=== PATIENT | female | born 1990 | race African-American/Black ===

== ENCOUNTER 2018-02-17 14:38 | Emergency (ER) | payer OTHER ==
--- NOTE | 2018-02-17 14:45 | PDOC ---
History of Present Illness - History of Present Illness Initial Comments: 02/17/18 15:20 Patient is a 27 year old female with no significant past medical history who presents to the ED with complaints of diffuse abdominal pain that began yesterday afternoon. Patient reports gradual abdominal pain began yesterday afternoon that she states is a pressured pain and is currently rated as 10/10 in intensity. She reports getting a liposuction surgery conducted last week on february 10 in [place], before returning to [place]. Patient reports having not moved her bowels since before completing the surgery. She reports taking percocet for the pain with slight relief, as well as being prescribed keflex x4 times a week, but state she misses up to 1 dose per day due to being asleep after taking the percocet.Patient reports having her incisions drained before, stating she had to have them re opened in order to fully drain the incision sites. Denies chest pain, Sob. Denies nausea, vomiting. Denies contact with sick individuals, out of state travelling. Denies trauma to affected area. Denies any other symptoms. Allergies: None Social history: No smoking. No alcohol. No illicit drugs. Surgical history: Liposuction PMD: Not on staff. <Venu Ford - Last Filed: 02/17/18 15:20> - General History Source: Patient Exam Limitations: No Limitations <Yue Bedoya - Last Filed: 02/17/18 17:08> - General Chief Complaint: Pain Stated Complaint: ABDOMINAL PAIN S/P LIPOSUCTION Time Seen by Provider: 02/17/18 14:43 Past History <Venu Ford - Last Filed: 02/17/18 15:20> - Suicide/Smoking/Psychosocial Hx Smoking History: Never smoked Substance Use Type: None <Yue Bedoya - Last Filed: 02/17/18 17:08> - Past Medical History Allergies/Adverse Reactions: Allergies Allergy/AdvReac Type Severity Reaction Status Date / Time loratadine [From Claritin] Allergy Verified 02/17/18 14:39 Home Medications: Ambulatory Orders Cephalexin [Keflex] 500 mg PO QID 02/17/18 Ondansetron HCl [Zofran] 4 mg PO PRN 02/17/18 Oxycodone HCl/Acetaminophen [Endocet 5-325 Tablet] 1 tab PO PRN 02/17/18 Polyethylene Glycol 3350 [Miralax (For Bowel Prep) -] 17 gm PO DAILY #1 bottle 02/17/18 Review of Systems - Review of Systems Able to Perform ROS?: Yes Comments:: 02/17/18 15:20 GENERAL/CONSTITUTIONAL: No: fever, chills, weakness, loss of appetite. HEAD, EYES, EARS, NOSE AND THROAT: No: change in vision, ear pain, discharge, sore throat, throat swelling. CARDIOVASCULAR: No: chest pain, lightheadedness, palpitations, syncope RESPIRATORY: No: cough, shortness of breath, wheezing, hemoptysis, stridor. GASTROINTESTINAL: +Constipation No: nausea, vomiting, abdominal cramping, diarrhea, rectal bleeding, GENITOURINARY: No: dysuria, hematuria, frequency, urgency, flank pain. MUSCULOSKELETAL: +Diffuse abdominal pain. No: back pain, neck pain, joint pain, muscle swelling SKIN: No: lesions, pallor, rash or easy bruising. NEUROLOGIC: No: headache, vertigo, paresthesias, weakness ENDOCRINE: No: unexplained weight gain or loss HEMATOLOGIC/LYMPHATIC: No: anemia, easy bleeding, swelling nodes <Venu Ford - Last Filed: 02/17/18 15:20> *Physical Exam - Vital Signs Last Vital Signs Temp Pulse Resp BP Pulse Ox 99.5 F 97 H 20 114/65 100 02/17/18 14:39 02/17/18 14:39 02/17/18 14:39 02/17/18 14:39 02/17/18 14:39 - Physical Exam Comments: 02/17/18 15:21 GENERAL: The patient is in no acute distress. HEAD: Normal with no signs of trauma. EYES: PERRLA, EOMI, sclera anicteric, conjunctiva clear. ENT: Ears normal, nares patent, oropharynx clear without exudates. Moist mucous membranes. NECK: Normal range of motion, supple without lymphadenopathy, JVD, or masses. LUNGS: Breath sounds equal, clear to auscultation bilaterally. No wheezes, and no crackles. HEART:Regular rate and rhythm, normal S1 and S2 without murmur, rub or gallop. ABDOMEN: +x3 superpubic incisions located in right, middle and left site. +Dry puss in right incision site. Soft, nontender, normoactive bowel sounds. No guarding, no rebound. EXTREMITIES: Normal range of motion, no edema. No clubbing or cyanosis. No erythema, or tenderness. NEUROLOGICAL: Cranial nerves II through XII grossly intact. Normal speech. No focal neurological deficits. MUSCULOSKELETAL: Back nontender to palpation, no CVA tenderness SKIN: Warm, Dry, normal turgor, no rashes or lesions noted. <Venu Ford - Last Filed: 02/17/18 15:20> Medical Decision Making - Medical Decision Making 02/17/18 16:46 27 yo F presenting to the ER with abdominal pain Pt is s/p Liposuction approximately 1 week ago No fevers or chills Has not had a bowel movement since before the surgery No chest pain No shortness of breath No dysuria Pt has pain through out the abdomen On examin No erythema, no drainage No signs of cellulitis No purulence Abd is soft, no involuntary guarding or rebound Xray demonstrates fecal impaction US demonstrates scant fluid in the abdominal wall No signs of a collection No seroma Will ask pt to continue her pain medications Will ask pt to take her temp and monitor for fevers Will ask pt to follow up with plastic surgeon Clinical IMpression: abdominal pain s/p liposuction, initial presentation <Yue Bedoya - Last Filed: 02/17/18 17:08> *DC/Admit/Observation/Transfer - Attestations Scribe Attestion: 02/17/18 15:21 Documentation prepared by Venu Ford, acting as senior medical transcriptionist for Yue Bedoya MD. <Venu Ford - Last Filed: 02/17/18 15:20> - Discharge Dispostion Decision to Admit order: No <Yue Bedoya - Last Filed: 02/17/18 17:08> Diagnosis at time of Disposition: Abdominal wall pain Constipation Qualifiers: Constipation type: other constipation type Qualified Code(s): K59.09 - Other constipation - Discharge Dispostion Disposition: HOME Condition at time of disposition: Stable - Prescriptions Prescriptions: Polyethylene Glycol 3350 [Miralax (For Bowel Prep) -] 17 gm PO DAILY #1 bottle - Referrals Referrals: Obey Lopez MD [Staff Physician] - Helder Pagan MD [Staff Physician] - Urbano Byrne MD [Staff Physician] - - Patient Instructions Printed Discharge Instructions: [facility] on Liposuction, Liposuction, DI for Liposuction Additional Instructions: Ms Whitehead Thank you for coming in to the ER today Please be sure to follow up with the Plastic Surgeon as soon as possible Please monitor for fevers and chills Please monitor for redness around your incision sites Please continue to take pain medications you were prescribed You MUST start a bowel regimen You MUST have a bowel movement (you are constipated) Please return to the ER IMMEDIATELY for increased pain, fevers, chills, abdominal distention Please return to the ER on Thursday at [facility] for re evaluation
[2018-02-17 14:56] VITALS: BP 114/65; PULSE 97; TEMP 99.5; BMI 30.9
[2018-02-17] MEDS ORDERED: SODIUM CHLORIDE 1,000 ML IV STA (15:04)
[2018-02-17] MEDS ORDERED: morphine CARPU-JECT 4 MG/1 ML DISP.SYRIN IVPUSH ONE (15:04)
== END 2018-02-17 17:23 | disposition home or self-care (01) ==
LOC: FER 14:38
DX: K59.09 Other constipation (principal); R10.9 Unspecified abdominal pain
CPT/HCPCS: 74019-TC-FY; 76705; 99282-25

== ENCOUNTER 2019-01-07 22:59 | Observation (INO) | payer OTHER ==
[2019-01-07 23:03] VITALS: BMI 29.2
[2019-01-08] MEDS ORDERED: DEXAMETHASONE LIQUID 0.5 MG/5 ML 240 ML BULK BOTTLE PO ONE (01:22)
[2019-01-08] MEDS ORDERED: SODIUM CHLORIDE 0.9% 500 ML INFUS.BAG IV ONE (01:29)
[2019-01-08 02:01] LABS: BASO % 0.4 % (0-2.0); EOS % 0.8 % (0-4.5); HEMATOCRIT 36.4 % (32.4-45.2); HEMOGLOBIN 11.7 GM/dL (10.7-15.3); LYMPH % 32.6 % (8-40); MCH 26.4 pg (25.7-33.7); MCHC 32.2 g/dl (32.0-36.0); MEAN CELL VOLUME 82.1 fl (80-96); MEAN PLT VOLUME 8.8 fl (7.5-11.1); MONO % 4.6 % (3.8-10.2); NEUT % 61.6 % (42.8-82.8); PLATELET COUNT 201 K/MM3 (134-434); RBC 4.44 M/mm3 (3.60-5.2); RDW 14.6 % (11.6-15.6); WHITE BLOOD COUNT 4.8 K/mm3 (4.0-10.0)
[2019-01-08] MEDS ORDERED: DEXAMETHASONE SOD PHOSPHATE 10 MG/1 ML VIAL ONE (02:02)
[2019-01-08 02:22] LABS: ALBUMIN 3.5 g/dl (3.4-5.0); BILIRUBIN,TOTAL 0.6 mg/dL (0.2-1); CALCIUM 8.3 mg/dL (8.5-10.1); CREATININE 0.8 mg/dL (0.55-1.3); POTASSIUM 3.6 mmol/L (3.5-5.1); TOT PROT 7.5 g/dl (6.4-8.2)
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
--- NOTE | 2019-01-08 06:26 | PN ---
Teaching Attending Note Name of Resident: Namita Hanson ATTENDING PHYSICIAN STATEMENT I saw and evaluated the patient. I reviewed the resident's note and discussed the case with the resident. I agree with the resident's findings and plan as documented. SUBJECTIVE: Seen and examined; please refer to resident note for further historical information. Briefly, this is a 28 y/o female presenting to the ER with a CC of hives; she gets these several times a year. Has had for 3 days associated with sensation of throat swelling and tongue swelling (neither present now). She is protecting her airway without any issues maintaining her sats. Only complaint now is itchiness. It hasn't ever lasted this long. Has seen glass glazier before; she is on hydroxyzine at home and has been on steroids in the past but none dosed recently. 10 sys ROS done and negative aside from HPI PMH, PSH, FH, SH reviewed Home Medications Medication Instructions Recorded Cephalexin [Keflex] 500 mg PO QID 02/17/18 Ondansetron HCl [Zofran] 4 mg PO PRN 02/17/18 Oxycodone HCl/Acetaminophen 1 tab PO PRN 02/17/18 [Endocet 5-325 Tablet] Polyethylene Glycol 3350 [Miralax 17 gm PO DAILY #1 bottle 02/17/18 (For Bowel Prep) -] OBJECTIVE: VS, labs, imaging reviewed NAD, AAO, resting comfortably in bed RRR s1/2 no mgr NC AT EOMI PERRLA Lungs CTAB, w/ sym exp Normal tongue/lips. Protecting airway, no issues swallowing CN2-12 wnl, no fnd ASSESSMENT AND PLAN: Patient presents with recurring hives; had throat/tongue swelling that has resolved. 1) Allergic Reaction -Placing on BID benadryl, famotidine, short burst of Prednisone 40mg -ER sent out C1 labs; can likely followup as OP -Consider nonurgent A and I consultation. 2) Overweight (BMI 29) -Head Of [employer] prior to DC Full Code
[2019-01-08 06:54] VITALS: PULSE 72; TEMP 98.3
--- NOTE | 2019-01-08 07:40 | DS ---
Physical Examination Vital Signs: Vital Signs Temperature 36.8 C 01/08/19 06:45 Pulse Rate 72 01/08/19 06:45 Respiratory Rate 16 01/08/19 06:45 Blood Pressure 95/48 L 01/08/19 06:45 O2 Sat by Pulse Oximetry (%) 100 01/08/19 06:45 Constitutional: Yes: Well Nourished, No Distress, Calm Cardiovascular: Yes: Regular Rate and Rhythm. No: Gallop, Murmur, Rub Respiratory: Yes: Regular, CTA Bilaterally. No: Rales, Rhonchi, Wheezes Gastrointestinal: Yes: Normal Bowel Sounds, Soft. No: Distention, Tenderness Extremities: Yes: WNL Edema: No Labs: CBC, BMP 01/08/19 01:39 01/08/19 01:39 Discharge Summary Reason For Visit: HEREDITARY ANGIONEUROTIC EDEMA/URTICARIA/ITCHING Hospital Course: Ms Whitehead is a very pleasant 28 year old female who comes in with allergic reaction. This began 3 days ago and she had some experience of throat swelling at first, but that has resolved and she is protecting her airway now. She presented with severe hives. She received steroids and benadryl and upon seeing her the hives resolved. FFP was ordered for her, and while this is treatment for an acute exacerbation of hereditary angioedema this was cancelled as she was protecting her airway, she does not give a history of HAE, it has been present for 3 days, and it resolved with steroids and benadryl. She will be discharged home on a prednisone taper and benadryl. She is safe for discharge home. Condition: Good - Instructions Diet, Activity, Other Instructions: resume previous diet and activity Referrals: Marcellus Bernard MD [Primary Care Provider] - Disposition: HOME - Home Medications Comprehensive Discharge Medication List: Ambulatory Orders Diphenhydramine HCl [Benadryl Capsule -] 50 mg PO BID #20 capsule 01/08/19 Hydroxyzine HCl 25 mg PO DAILY 01/08/19 predniSONE [Deltasone -] 5 mg PO ASDIR #32 tab 01/08/19
[2019-01-08 08:34] VITALS: BP 100/58
[2019-01-08] MEDS ORDERED: ENOXAPARIN NA (PORCINE) 40 MG/0.4 ML DISP.SYRIN SQ SCH (10:00)
[2019-01-08] MEDS ORDERED: FAMOTIDINE 20 MG/50 ML IVPB 20 MG/50 ML MG IVPB SCH (10:00)
[2019-01-08] MEDS ORDERED: predniSONE 20 MG TABLET (UD) PO SCH (10:00)
[2019-01-08] MEDS ORDERED: diphenhydrAMINE HCL 25 MG CAPSULE (FP) PO SCH (10:00)
--- NOTE | 2019-01-08 10:57 | EKG ---
Test Reason : Blood Pressure : / mmHG Vent. Rate : 093 BPM Atrial Rate : 093 BPM P-R Int : 170 ms QRS Dur : 084 ms QT Int : 348 ms P-R-T Axes : 062 056 022 degrees QTc Int : 432 ms NORMAL SINUS RHYTHM NONSPECIFIC T WAVE ABNORMALITY ABNORMAL ECG NO PREVIOUS ECGS AVAILABLE Confirmed by SHERWIN TUCKER MD ([id number]) on 01/08/2019 10:57:17 AM Referred By: Confirmed By:SHERWIN TUCKER MD
== END 2019-01-08 08:35 | disposition home or self-care (01) ==
LOC: JER 22:59 → JERBED 01-08 05:34 → INTOOBSV 01-08 05:34
PROVIDERS: ADMIT Internal Medicine; ATTEND Internal Medicine
PROC: 3E0337Z Introduction of Electrolytic and Water Balance Substance into Peripheral Vein, Percutaneous Approach (ICD-10-PCS; principal; 2019-01-08)
DX: L50.9 Urticaria, unspecified (principal); L29.9 Pruritus, unspecified; D84.1 Defects in the complement system; E66.3 Overweight; Z68.29 Body mass index [BMI] 29.0-29.9, adult
CPT/HCPCS: 36415; 71045-TC-FY; 80053; 84703; 85025; 86161; 86850; 86900; 86901; 93005; 93010; 99283-25; G0378

== ENCOUNTER 2021-11-25 04:37 | Inpatient (IN) | payer OTHER ==
[2021-11-21 12:32] VITALS: BMI 29.2
[2021-11-25] MEDS ORDERED: CEFAZOLIN 2 GM in DEXTROSE 5%-WATER - 100 ML IVPB ONE (06:30)
[2021-11-25] MEDS ORDERED: GABAPENTIN 300 MG CAPSULE PO ONE (07:00)
[2021-11-25] MEDS ORDERED: ceFAZolin SODIUM 1 GM VIAL ONE ×3 (07:57→23:49)
[2021-11-25] MEDS ORDERED: ACETAMINOPHEN 1000 MG/100 ML BAG IVPB ONE (08:00)
[2021-11-25] MEDS ORDERED: BUPIVACAINE HCL/PF 0.5% (5MG/ML) 10 ML VIAL ONE (10:02)
[2021-11-25] MEDS ORDERED: BUPIVACAINE LIPOSOME/PF (EXPAREL) 266 MG/20 ML VIAL ONE (10:03)
[2021-11-25] MEDS ORDERED: MIDAZOLAM HCL 2 MG/2 ML SINGLE DOSE VIAL ONE ×3 (11:03→11:36)
[2021-11-25] MEDS ORDERED: PROPOFOL 20 ML ONE ×2 (11:36→12:42)
[2021-11-25] MEDS ORDERED: ROCURONIUM BROMIDE 50 MG/5 ML SYRINGE ONE (11:37)
[2021-11-25] MEDS ORDERED: TRANEXAMIC ACID 1000 MG/10 ML VIAL ONE (11:45)
[2021-11-25] MEDS ORDERED: HYDROmorphone HCl 2 MG/ML VIAL ONE (11:46)
[2021-11-25] MEDS ORDERED: HEPARIN NA (PORCINE) 5,000 UNITS/ML 1ML VIAL ONE (11:49)
[2021-11-25] MEDS ORDERED: ceFAZolin SODIUM 1 GM VIAL IVPB ONE (12:00)
[2021-11-25] MEDS ORDERED: DEXAMETHASONE SOD PHOSPHATE 4 MG/1 ML VIAL ONE (12:26)
[2021-11-25] MEDS ORDERED: NEOSTIGMINE METHYLSULFATE 0.5 MG/ML - 10 ML MDV ONE (13:18)
[2021-11-25] MEDS ORDERED: GLYCOPYRROLATE 0.2 MG/1 ML VIAL ONE (13:18)
[2021-11-25] MEDS ORDERED: ONDANSETRON 4 MG/2 ML VIAL IVPUSH PRN ×2 (13:45→16:40)
[2021-11-25] MEDS ORDERED: BISACODYL 5 MG TABLET.DR (FP) PO PRN (13:45)
[2021-11-25] MEDS ORDERED: IBUPROFEN 800 MG/8 ML IJ IVPB PRN ×2 (13:45→20:00)
[2021-11-25] MEDS ORDERED: oxyCODONE HCL 5 MG TABLET PO PRN (13:45)
[2021-11-25] MEDS ORDERED: DEXTROSE 5%-WATER - 50 ML IVPB ONE ×2 (17:31→23:50)
[2021-11-25] MEDS: CEFAZOLIN 1 GM in DEXTROSE 5%-WATER - 1 GM/50 ML IVPB IVPB SCH (17:34)
[2021-11-25] MEDS: LACTATED RINGERS SOLUTION 1,000 ML IV SCH (17:38)
[2021-11-25] MEDS: ACETAMINOPHEN 325 MG TABLET (FP) PO SCH (21:14)
[2021-11-25] MEDS: FAMOTIDINE 20 MG TABLET PO SCH (21:15)
[2021-11-25] MEDS: MIRTAZAPINE 15 MG TABLET (FP) PO SCH (21:15)
[2021-11-25 21:53] LABS: HEMATOCRIT 36.6 % (32.4-45.2); MCH 26.8 pg (25.7-33.7); MCHC 32.7 g/dl (32.0-36.0); MEAN CELL VOLUME 82.2 fl (80-96); MEAN PLT VOLUME 8.1 fl (7.5-11.1); PLATELET COUNT 214 10^3/uL (134-434); RBC 4.46 M/mm3 (3.60-5.2); RDW 15.3 % (11.6-15.6)
[2021-11-25 22:13] LABS: CALCIUM 8.4 mg/dL (8.5-10.1)
[2021-11-25 22:14] LABS: BLOOD UREA NITROGEN 10.1 mg/dL (7-18)
[2021-11-25] MEDS: oxyCODONE HCL 5 MG TABLET PO PRN (23:38)
[2021-11-25] MEDS ORDERED: MELATONIN 5 MG TABLETS PO ONE (23:42)
[2021-11-26] MEDS: CEFAZOLIN 1 GM in DEXTROSE 5%-WATER - 1 GM/50 ML IVPB IVPB SCH ×2 (01:04→09:59)
[2021-11-26] MEDS: ACETAMINOPHEN 325 MG TABLET (FP) PO SCH ×4 (01:04→21:32)
[2021-11-26] MEDS: LACTATED RINGERS SOLUTION 1,000 ML IV SCH (06:23)
[2021-11-26] MEDS: oxyCODONE HCL 5 MG TABLET PO PRN ×2 (06:25→14:16)
[2021-11-26] MEDS: LEVOTHYROXINE NA 25 MCG TABLET (FP) PO SCH (06:25)
[2021-11-26 08:52] LABS: HEMATOCRIT 34.3 % (32.4-45.2); HEMOGLOBIN 11.5 GM/dL (10.7-15.3); MCH 27.4 pg (25.7-33.7); MCHC 33.6 g/dl (32.0-36.0); MEAN CELL VOLUME 81.4 fl (80-96); MEAN PLT VOLUME 8.3 fl (7.5-11.1); PLATELET COUNT 194 10^3/uL (134-434); RBC 4.21 M/mm3 (3.60-5.2); WHITE BLOOD COUNT 6.5 K/mm3 (4.0-10.0)
[2021-11-26 09:21] LABS: BLOOD UREA NITROGEN 10.1 mg/dL (7-18)
[2021-11-26 09:24] LABS: CREATININE 0.7 mg/dL (0.55-1.3)
[2021-11-26] MEDS: FOLIC ACID 1 MG TABLET (FP) PO SCH (09:42)
[2021-11-26] MEDS: FAMOTIDINE 20 MG TABLET PO SCH ×2 (09:42→21:32)
[2021-11-26] MEDS ORDERED: ceFAZolin SODIUM 1 GM VIAL ONE (09:47)
[2021-11-26] MEDS ORDERED: DEXTROSE 5%-WATER - 50 ML IVPB ONE (09:48)
[2021-11-26] MEDS: ENOXAPARIN NA (PORCINE) 40 MG/0.4 ML DISP.SYRIN SQ SCH (10:01)
[2021-11-26] MEDS ORDERED: ONDANSETRON 4 MG TABLET PO PRN (13:25)
[2021-11-26] MEDS ORDERED: IBUPROFEN 400 MG TABLET (FP) PO PRN (13:25)
[2021-11-26] MEDS: SIMETHICONE 80 MG TAB.CHEW (FP) PO PRN (14:16)
[2021-11-26] MEDS: DOCUSATE SODIUM 100 MG CAPSULE (FP) PO PRN (14:16)
[2021-11-26] MEDS: MIRTAZAPINE 15 MG TABLET (FP) PO SCH (21:32)
[2021-11-27] MEDS: ACETAMINOPHEN 325 MG TABLET (FP) PO SCH ×4 (01:20→21:54)
[2021-11-27] MEDS: LEVOTHYROXINE NA 25 MCG TABLET (FP) PO SCH (06:03)
[2021-11-27] MEDS: oxyCODONE HCL 5 MG TABLET PO PRN (06:06)
[2021-11-27] MEDS: ENOXAPARIN NA (PORCINE) 40 MG/0.4 ML DISP.SYRIN SQ SCH (09:21)
[2021-11-27] MEDS: FAMOTIDINE 20 MG TABLET PO SCH ×2 (09:52→21:54)
[2021-11-27] MEDS: FOLIC ACID 1 MG TABLET (FP) PO SCH (09:52)
[2021-11-27] MEDS: SIMETHICONE 80 MG TAB.CHEW (FP) PO PRN ×2 (09:52→14:18)
[2021-11-27] MEDS ORDERED: BISACODYL 10 MG SUPP.RECT PR ONE (13:36)
[2021-11-27] MEDS: DOCUSATE SODIUM 100 MG CAPSULE (FP) PO PRN (14:18)
[2021-11-27] MEDS: MIRTAZAPINE 15 MG TABLET (FP) PO SCH (21:54)
[2021-11-28] MEDS: ACETAMINOPHEN 325 MG TABLET (FP) PO SCH ×2 (02:00→10:36)
[2021-11-28] MEDS: LEVOTHYROXINE NA 25 MCG TABLET (FP) PO SCH (06:05)
[2021-11-28] MEDS: ENOXAPARIN NA (PORCINE) 40 MG/0.4 ML DISP.SYRIN SQ SCH (10:37)
[2021-11-28] MEDS: FOLIC ACID 1 MG TABLET (FP) PO SCH (10:37)
[2021-11-28] MEDS: FAMOTIDINE 20 MG TABLET PO SCH (10:37)
[2021-11-28] MEDS ORDERED: ONDANSETRON *ODT* 4 MG TABLET SL PRN (10:43)
[2021-11-28 11:38] VITALS: BP 148/91; PULSE 79; TEMP 98.8
== END 2021-11-28 12:07 | disposition home or self-care (01) | DRG 519 ==
LOC: J2C 04:37 → J8W 16:03
PROVIDERS: ADMIT Obstetrics & Gynecology; ATTEND Obstetrics & Gynecology
PROC: 0UB90ZZ Excision of Uterus, Open Approach (ICD-10-PCS; principal; 2021-11-25 11:40)
DX: D25.9 Leiomyoma of uterus, unspecified (principal); N84.0 Polyp of corpus uteri; N92.0 Excessive and frequent menstruation with regular cycle
CPT/HCPCS: 36415; 80048; 85027; 88305-TC; 94760; J1644; Q0162

== ENCOUNTER 2022-06-25 17:06 | Emergency (ER) | payer OTHER ==
[2022-06-25 18:14] VITALS: BP 102/65; PULSE 77; RESP 18; TEMP 98.1; BMI 28.3
[2022-06-25] MEDS ORDERED: LACTATED RINGERS SOLUTION 1000 ML INFUS.BAG IV ONE (18:22)
[2022-06-25] MEDS ORDERED: METOCLOPRAMIDE HCL INJECTION 10 MG/2 ML VIAL IVPUSH ONE (18:22)
[2022-06-25] MEDS ORDERED: ACETAMINOPHEN 1000 MG/100 ML BAG IVPB ONE (18:22)
[2022-06-25] MEDS ORDERED: ACETAMINOPHEN INJECTION 100 ML IVPB ONE (19:54)
[2022-06-25] MEDS ORDERED: METOCLOPRAMIDE HCL INJECTION 10 MG/2 ML VIAL ONE (19:54)
[2022-06-25 20:23] LABS: BASO % 1.8 % (0-2.0); EOS % 2.4 % (0-4.5); HEMATOCRIT 33.2 % (32.4-45.2); LYMPH % 39.2 % (8-40); MCH 26.1 pg (25.7-33.7); MCHC 33.1 g/dl (32.0-36.0); MEAN CELL VOLUME 78.7 fl (80-96); MONO % 11.4 % (3.8-10.2); NEUT % 45.2 % (42.8-82.8); PLATELET COUNT 144 10^3/uL (134-434); RBC 4.22 M/mm3 (3.60-5.2); RDW 14.2 % (11.6-15.6); WHITE BLOOD COUNT 3.2 K/mm3 (4.0-10.0)
[2022-06-25 20:35] LABS: INR 1.15 (0.83-1.09); PROTHROMBIN TIME (PATIENT) 13.2 SEC (9.7-13.0)
[2022-06-25 20:38] LABS: ACTIVATED PTT 34.3 SECONDS (25.2-36.5)
[2022-06-25 20:46] LABS: CALCIUM 8.9 mg/dL (8.5-10.1)
[2022-06-25 20:47] LABS: ALBUMIN 3.8 g/dl (3.4-5.0); BLOOD UREA NITROGEN 8.5 mg/dL (7-18)
[2022-06-25 20:50] LABS: CREATININE 0.9 mg/dL (0.55-1.3)
[2022-06-25 20:51] LABS: BILIRUBIN,TOTAL 0.4 mg/dL (0.2-1); TOT PROT 8.2 g/dl (6.4-8.2)
[2022-06-25] MEDS ORDERED: AMOX TR/POT CLAV 875MG/125MG TABLETS (FP) PO ONE (21:15)
[2022-06-25] MEDS ORDERED: AMOX TR/POT CLAV 875MG/125MG TABLETS (FP) ONE (22:49)
== END 2022-06-25 22:59 | disposition home or self-care (01) ==
LOC: JER 17:06
PROC: 3E0333Z Introduction of Anti-inflammatory into Peripheral Vein, Percutaneous Approach (ICD-10-PCS; principal; 2022-06-25)
PROC: 3E033GC Introduction of Other Therapeutic Substance into Peripheral Vein, Percutaneous Approach (ICD-10-PCS; 2022-06-25)
DX: J01.90 Acute sinusitis, unspecified (principal); D72.819 Decreased white blood cell count, unspecified
CPT/HCPCS: 36415; 70551-TC; 80053; 83735; 84443; 84703; 85025; 85610; 85730; 99284-25

== ENCOUNTER 2022-11-01 00:01 | Inpatient (IN) | payer OTHER ==
[2022-11-01 00:10] VITALS: BMI 29.2
[2022-11-01] MEDS ORDERED: SODIUM CHLORIDE 0.9% 500 ML INFUS.BAG IV ONE ×2 (01:29→02:55)
[2022-11-01] MEDS ORDERED: ACETAMINOPHEN 1000 MG/100 ML BAG IVPB ONE (01:29)
[2022-11-01] MEDS ORDERED: FAMOTIDINE 20 MG/50 ML IVPB 20 MG/50 ML MG IVPB ONE ×2 (01:29→02:11)
[2022-11-01] MEDS ORDERED: MAG HYDROX/AL HYDROX/SIMETH 30 ML UNIT-DOSE CUP PO ONE (01:29)
[2022-11-01] MEDS ORDERED: ACETAMINOPHEN INJECTION 100 ML IVPB ONE (01:32)
[2022-11-01] MEDS ORDERED: MAG HYDROX/AL HYDROX/SIMETH 30 ML UNIT-DOSE CUP ONE (01:34)
[2022-11-01] MEDS ORDERED: ONDANSETRON 4 MG/2 ML VIAL IVPB ONE (01:34)
[2022-11-01] MEDS ORDERED: ONDANSETRON 4 MG/2 ML VIAL ONE (02:11)
[2022-11-01 02:27] LABS: BASO % 0.6 % (0-2.0); EOS % 2.8 % (0-4.5); HEMATOCRIT 35.9 % (32.4-45.2); HEMOGLOBIN 11.4 GM/dL (10.7-15.3); LYMPH % 28.4 % (8-40); MCH 24.8 pg (25.7-33.7); MCHC 31.7 g/dl (32.0-36.0); MEAN CELL VOLUME 78.1 fl (80-96); MEAN PLT VOLUME 12.1 fl (7.5-11.1); MONO % 10.4 % (3.8-10.2); NEUT % 57.8 % (42.8-82.8); WHITE BLOOD COUNT 3.5 K/mm3 (4.0-10.0)
[2022-11-01 02:39] LABS: ALBUMIN 3.8 g/dl (3.4-5.0); CALCIUM 9.1 mg/dL (8.5-10.1)
[2022-11-01 02:40] LABS: BLOOD UREA NITROGEN 9.1 mg/dL (7-18)
[2022-11-01 02:42] LABS: CREATININE 0.8 mg/dL (0.55-1.3); URINE APPEARANCE CLEAR; URINE BILIRUBIN NEGATIVE (NEGATIVE); URINE COLOR YELLOW; URINE GLUCOSE (UA) NEGATIVE (NEGATIVE); URINE KETONE NEGATIVE (NEGATIVE); URINE LEUK ESTERASE NEGATIVE (NEGATIVE); URINE NITRITE NEGATIVE (NEGATIVE); URINE PROTEIN NEGATIVE (NEGATIVE); URINE UROBILINOGEN 0.2 mg/dL (0.2-1.0)
[2022-11-01 02:44] LABS: BILIRUBIN,TOTAL 0.4 mg/dL (0.2-1); TOT PROT 8.8 g/dl (6.4-8.2)
[2022-11-01] MEDS ORDERED: morphine CARPU-JECT 2 MG/1 ML DISP.SYRIN IVPUSH ONE (02:57)
[2022-11-01 03:15] LABS: PLATELET COUNT 54 10^3/uL (134-434)
[2022-11-01 04:19] LABS: CALCIUM 8.4 mg/dL (8.5-10.1)
[2022-11-01 04:20] LABS: BLOOD UREA NITROGEN 8.1 mg/dL (7-18)
[2022-11-01 04:23] LABS: CREATININE 0.8 mg/dL (0.55-1.3)
[2022-11-01] MEDS ORDERED: CIPROFLOXACIN 400 MG/D5W 400 MG/200 ML IVPB IVPB ONE (05:23)
[2022-11-01] MEDS ORDERED: CEFTRIAXONE 1,000 MG in DEXTROSE 5%-WATER - 50 ML IVPB ONE (06:56)
[2022-11-01] MEDS ORDERED: CEFTRIAXONE 1 GM/50 ML BAG ONE (07:16)
[2022-11-01] MEDS ORDERED: oxyCODONE HCL 5 MG TABLET PO PRN (07:35)
[2022-11-01] MEDS ORDERED: ONDANSETRON 4 MG/2 ML VIAL IVPUSH PRN (07:40)
[2022-11-01 09:12] LABS: MAGNESIUM 1.8 mg/dL (1.8-2.4)
[2022-11-01 09:16] LABS: PHOSPHOROUS 3.2 mg/dL (2.5-4.9)
[2022-11-01] MEDS: predniSONE 5 MG TABLET (UD) PO SCH ×2 (12:53→13:03)
[2022-11-01] MEDS: FOLIC ACID 1 MG TABLET (FP) PO SCH ×2 (12:53→13:04)
[2022-11-01] MEDS: D5-1/2NS+10 MEQ KCL - 10 MEQ/1,000 ML INFUS.BAG IV SCH (12:53)
[2022-11-01] MEDS: FAMOTIDINE 20 MG/50 ML IVPB 20 MG/50 ML MG IVPB SCH ×2 (12:54→21:50)
[2022-11-01 13:52] LABS: BASO % 0.5 % (0-2.0); EOS % 3.5 % (0-4.5); HEMATOCRIT 33.2 % (32.4-45.2); HEMOGLOBIN 10.7 GM/dL (10.7-15.3); LYMPH % 35.4 % (8-40); MCH 25.2 pg (25.7-33.7); MCHC 32.3 g/dl (32.0-36.0); MEAN CELL VOLUME 78.1 fl (80-96); MEAN PLT VOLUME 12.2 fl (7.5-11.1); MONO % 15.6 % (3.8-10.2); PLATELET COUNT 41 10^3/uL (134-434); RBC 4.25 M/mm3 (3.60-5.2); RDW 13.8 % (11.6-15.6); WHITE BLOOD COUNT 2.3 K/mm3 (4.0-10.0)
[2022-11-01 14:05] LABS: BLOOD UREA NITROGEN 6.4 mg/dL (7-18); CALCIUM 8.2 mg/dL (8.5-10.1)
[2022-11-01 14:06] LABS: ALBUMIN 3.4 g/dl (3.4-5.0)
[2022-11-01 14:09] LABS: CREATININE 0.8 mg/dL (0.55-1.3)
[2022-11-01 14:10] LABS: BILIRUBIN,TOTAL 0.4 mg/dL (0.2-1); TOT PROT 7.2 g/dl (6.4-8.2)
[2022-11-01] MEDS ORDERED: MIRTAZAPINE 15 MG TABLET (FP) PO SCH (22:00)
[2022-11-02] MEDS: D5-1/2NS+10 MEQ KCL - 10 MEQ/1,000 ML INFUS.BAG IV SCH ×3 (00:23→16:59)
[2022-11-02 05:00] VITALS: RESP 18
[2022-11-02] MEDS ORDERED: LEVOTHYROXINE NA 25 MCG TABLET (FP) PO SCH (07:00)
[2022-11-02] MEDS ORDERED: CEFTRIAXONE 1 GM in DEXTROSE 5%-WATER - 50 ML IVPB SCH (10:00)
[2022-11-02 10:46] LABS: CHLORIDE 112 mmol/L (98-107); SODIUM 142 mmol/L (136-145)
[2022-11-02 10:50] LABS: ALBUMIN 3.4 g/dl (3.4-5.0); ANION GAP 4 MMOL/L (8-16); CALCIUM 8.6 mg/dL (8.5-10.1); CO2 26 mmol/L (21-32); LIPASE 126 U/L (73-393)
[2022-11-02 10:51] LABS: BLOOD UREA NITROGEN 6.2 mg/dL (7-18); GLUCOSE,RANDOM 77 mg/dL (74-106)
[2022-11-02 10:53] LABS: CREATININE 0.8 mg/dL (0.55-1.3); SGOT/AST 24 U/L (15-37); SGPT/ALT 23 U/L (13-61)
[2022-11-02 10:55] LABS: BASO % 0.4 % (0-2.0); BILIRUBIN,TOTAL 0.4 mg/dL (0.2-1); HEMATOCRIT 32.6 % (32.4-45.2); HEMOGLOBIN 10.6 GM/dL (10.7-15.3); LYMPH % 25.1 % (8-40); MCH 25.2 pg (25.7-33.7); MCHC 32.5 g/dl (32.0-36.0); MEAN CELL VOLUME 77.7 fl (80-96); MONO % 10.2 % (3.8-10.2); NEUT % 61.3 % (42.8-82.8); PLATELET COUNT 37 10^3/uL (134-434); RDW 13.7 % (11.6-15.6); TOT PROT 7.2 g/dl (6.4-8.2); WHITE BLOOD COUNT 4.1 K/mm3 (4.0-10.0)
[2022-11-02 10:56] LABS: ALK PHOS 49 U/L (45-117)
[2022-11-02] MEDS: FOLIC ACID 1 MG TABLET (FP) PO SCH (10:59)
[2022-11-02 11:50] LABS: ERYTHROCYTE SEDIMENTATION RATE 29 mm/hr (0-20)
[2022-11-02] MEDS: FAMOTIDINE 20 MG/50 ML IVPB 20 MG/50 ML MG IVPB SCH (13:00)
[2022-11-02] MEDS ORDERED: metroNIDAZOLE 250 MG TABLET PO SCH (14:00)
[2022-11-02] MEDS: metroNIDAZOLE 250 MG TABLET PO SCH ×2 (17:26→17:27)
[2022-11-02] MEDS ORDERED: MINERAL OIL/PET HY-PHL TOPICAL OINTMENT 454 GM JAR TP SCH (17:45)
[2022-11-02 19:13] VITALS: BP 144/76; PULSE 50; TEMP 98
[2022-11-03 17:08] LABS: SPECKLED PATTERN >1:1280 (.)
== END 2022-11-02 21:00 | disposition left against medical advice (07) | DRG 282 ==
LOC: JER 00:01 → JERBED 02:59 → J5S 11:28
PROVIDERS: ADMIT Internal Medicine; ATTEND Internal Medicine
DX: K85.90 Acute pancreatitis without necrosis or infection, unspecified (principal); M32.9 Systemic lupus erythematosus, unspecified; E03.9 Hypothyroidism, unspecified; K21.9 Gastro-esophageal reflux disease without esophagitis; M06.9 Rheumatoid arthritis, unspecified; K52.9 Noninfective gastroenteritis and colitis, unspecified; D69.6 Thrombocytopenia, unspecified; D72.819 Decreased white blood cell count, unspecified
CPT/HCPCS: 0241U-QW; 36415; 74177-TC; 76705-TC; 80048; 80053; 81003; 83690; 83735; 84100; 84703; 85025; 85651; 86038; 86140; 87086; 93005; 93010; 99285-25; Q9967

== ENCOUNTER 2023-10-31 08:16 | Emergency (ER) | payer OTHER ==
[2023-10-31 08:29] VITALS: BP 139/70; PULSE 72; RESP 16; TEMP 97.5; BMI 28.6
[2023-10-31] MEDS ORDERED: CYCLOBENZAPRINE HCL 10 MG TABLET (FP) ONE (08:48)
[2023-10-31] MEDS: CYCLOBENZAPRINE HCL 10 MG TABLET (FP) PO ONE (08:52)
== END 2023-10-31 10:03 | disposition home or self-care (01) ==
LOC: JERFT 08:16
DX: M62.838 Other muscle spasm (principal); M25.571 Pain in right ankle and joints of right foot; M79.651 Pain in right thigh
CPT/HCPCS: 99283-25

== ENCOUNTER 2025-06-07 11:56 | Day surgery (SDC) | payer MEDICARE, OTHER ==
[2025-06-07] MEDS: ACETAMINOPHEN 325 MG TABLET (FP) PO ONE (12:17)
[2025-06-07] MEDS: DIPHENHYDRAMINE 25 MG in SODIUM CHLORIDE 50 ML IVPB ONE (12:19)
[2025-06-07] MEDS: IGA IVPB ONE (12:58)
[2025-06-07] MEDS: IMMUN GLOB IVPB ONE (12:58)
[2025-06-07] MEDS: PRO IVPB ONE (12:58)
[2025-06-07 16:40] VITALS: RESP 20
[2025-06-07 16:44] VITALS: BP 151/86; PULSE 64; TEMP 98.3
== END 2025-06-07 15:30 | disposition home or self-care (01) ==
LOC: JONCCHEMO 11:56
PROVIDERS: ATTEND Internal Medicine Hematology & Oncology
PROC: 3E033KZ Introduction of Other Diagnostic Substance into Peripheral Vein, Percutaneous Approach (ICD-10-PCS; principal; 2025-06-07)
DX: M32.9 Systemic lupus erythematosus, unspecified (principal); D69.6 Thrombocytopenia, unspecified
CPT/HCPCS: 96365; 96366; J1459

== ENCOUNTER 2025-06-08 11:59 | Day surgery (SDC) | payer MEDICARE, OTHER ==
[2025-06-08] MEDS: IGA IVPB ONE (12:24)
[2025-06-08] MEDS: IMMUN GLOB IVPB ONE (12:24)
[2025-06-08] MEDS: PRO IVPB ONE (12:24)
[2025-06-08] MEDS: ACETAMINOPHEN 325 MG TABLET (FP) PO ONE (12:25)
[2025-06-08] MEDS: DIPHENHYDRAMINE 25 MG in SODIUM CHLORIDE 50 ML IVPB ONE (12:27)
[2025-06-08 15:11] VITALS: RESP 20
[2025-06-08 15:29] VITALS: BP 116/78; PULSE 63; TEMP 98.4
== END 2025-06-08 15:35 | disposition home or self-care (01) ==
LOC: J7W 11:59 → JONCBLOOD 11:59
PROVIDERS: ATTEND Internal Medicine Hematology & Oncology
PROC: 3E033GC Introduction of Other Therapeutic Substance into Peripheral Vein, Percutaneous Approach (ICD-10-PCS; principal; 2025-06-08)
DX: M32.9 Systemic lupus erythematosus, unspecified (principal); D69.6 Thrombocytopenia, unspecified
CPT/HCPCS: 96365; 96366; J1459